=== PATIENT | female | born 1950 | race Caucasian/White ===

== ENCOUNTER 2023-06-26 11:18 | Emergency (ER) | payer MEDICARE, SELFPAY ==
[2023-06-26 11:26] VITALS: BP 163/75; PULSE 44; RESP 16; TEMP 36.4; O2SAT 95; BMI 32.2
--- NOTE | 2023-06-26 13:41 | ED_ITS ---
HPI - General Adult General Date Seen: 06/26/23 Chief complaint: Constipation Stated complaint: constipated Time Seen by Provider: 06/26/23 11:21 Source: patient and family Mode of arrival: ambulatory Limitations: no limitations and language barrier History of Present Illness HPI narrative: Patient is a very nice 9-year-old female presents here after her Medicare wellness exam she had earlier today she was seen by provider in [place], at the [facility], as she has a history of chronic constipation this been going on for many years, she told the provider that she had croup in a couple days, she is having no abdominal pain, fevers chills, nausea vomiting eating and drinking otherwise well. She has been trying some lemon is anti constipation medication from [place]. Her provider did x-ray that showed she was in her words full a poop, and sent her to the emergency room, she has no other symptoms, has a colonoscopy scheduled coming up here shortly, had a previous c olonoscopy 2 years ago where they did removed some polyps. None of them were cancerous, she is here with her daughter who speaks ankle anguish she does not speak any Slovak, and depression goes back and forth between [place] and the [place] . Did not take her antihypertensive medication losartan in the last couple days. My nurse noted that she is slightly bradycardiac. She is asymptomatic with this. Associated symptoms: denies other symptoms Related Data Allergies Allergy/AdvReac Type Severity Reaction Status Date / Time Penicillins Allergy Unknown Verified 06/26/23 11:32 Review of Systems Status of ROS: Reports: 10 or more systems reviewed and unremarkable except as noted in History and below PFSH PFSH Social History Smoking Status: Never smoker How often do you have a drink containing alcohol: never How often do you have six or more drinks on one occasion: Never AUDIT-C Alcohol total score: 0 Non-prescribed substance use: denies use Exam Narrative: Exam Narrative: On examination she is delightful she is in no apparent distress. Vital signs are listed. And reviewed the symptoms pupils are equal round reactive to light there is no scleral icterus redness, her TMs are normal her oropharynx is normal her chest is clear bilaterally with no wheezing crackles noted her heart sounds are normal no clicks murmurs or gallops her abdomen is soft and obese there is no guarding no organomegaly noted bowel sounds are normal. She is otherwise soft with no tenderness. With the mi senior director creative services present we did do a rectal exam which showed a little bit of stool in the rectal vault, there was no blood, my examining finger there is no significant hemorrhoids. Const: Vital Signs, click to edit/add: Vital Signs - 24 hr 06/26/23 11:26 Temperature 97.5 F L Pulse Rate [Pulse Oximeter] 44 L Respiratory Rate 16 Blood Pressure [Ri ght Upper Arm] 163/75 H Pulse Oximetry 95 Oxygen Delivery Me thod Room Air Documenting provider has reviewed patient's vital signs: yes Course Vital Signs Vital signs: Initial Vital Signs Temperature 97.5 F L 06/26/23 11:26 Temperature Source Temporal Artery Scan 06/26/23 11:26 Pulse Rate 44 L 06/26/23 11:26 Respiratory Rate 16 06/26/23 11:26 Blood Pressure 163/75 H 06/26/23 11:26 Blood Pressure Mean 104 06/26/23 11:26 Blood Pressure Position Sitting 06/26/23 11:26 Pulse Oximetry 95 06/26/23 11:26 Oxygen Delivery Method Room Air 06/26/23 11:26 Vital Signs Temperature 97.5 F L 06/26/23 11:26 Pulse Rate 44 L 06/26/23 11:26 Respiratory Rate 16 06/26/23 11:26 Blood Pressure 163/75 H 06/26/23 11:26 Pulse Oximetry 95 06/26/23 11:26 Oxygen Delivery Method Room Air 06/26/23 11:26 Temperature 97.5 F L 06/26/23 11:26 Pulse Rate 44 L 06/26/23 11:26 Respiratory Rate 16 06/26/23 11:26 Blood Pressure 163/75 H 06/26/23 11:26 Pulse Oximetry 95 06/26/23 11:26 Oxygen Delivery Method Room Air 06/26/23 11:26 Medical Decision Making MDM Narrative Medical decision making narrative: I discussed with her and her daughter, she has had a recent colonoscopy and has another 1 scheduled, she can use the MiraLax of the Go[facility] I did review the note from the previous physician that center here in there was no mention of sending her to the ER. So I do not know if this was wrongly stated by the patient. Nevertheless there is no emergent condition here, I did offer her enema which she declined. She can continue with the MiraLax and follow up if signs and symptoms of worsening which we discussed. Discharge Plan Discharge Clinical Impression: Chronic constipation, Bradycardia, Hypertension Patient Disposition: Home w/ Parent or Adult Condition: Stable Instructions: Constipation (ED), Chronic Hypertension (DC), Bradycardia (ED) Additional Instructions: Home rest lots of fluids, is the primary cause of constipation I have learned over the years is not enough fluids, couple this with lots of fiber, and the primary treatment is also MiraLax plus or minus the GoLYTELY that her doctor recommended. I do recommend that use visit with Dr. Willard at the public address announcer at [facility] he is very beneficial for this can a problem. Indications to come back to the emergency room where inability to eat, throwing up, or not passing gas. The low heart rate should be followed by your regular physician we do not do anything about this at this level unless you start to pass out or feel very very lightheaded. You should take your medications for your eye blood pressure as today's visit your blood pressure was slightly elevated. Follow-up with your regular physician Reposo en casa muchos l?quidos, es la causa principal del estre?imiento que he aprendido a lo thalia de los a?os no es suficiente l?quidos, combine esto con justin fibra, y el tratamiento primario tambi?n es MiraLax m?s o menos el GoLYTELY que le recomend? vicente m?dico. Recomiendo que visite al Dr. Willard en el gastroenter?logo de [facility], ya que es muy beneficioso para nadiya problema. Indicaciones para volver a la tita de emergencias en [place] de incapacidad para comer, v?mitos o no expulsar gases. La frecuencia card?bertrand baja debe ser seguida por vicente m?dico habitual, no hacemos nada al respecto a nadiya nivel a menos que comience a desmayarse o se sienta muy, muy mareado. Debe natalie sharon medicamentos para la presi?n arterial de los ojos, ya que en la visita de hoy vicente presi?n arterial estaba ligeramente elevada. Realice un seguimiento con vicente m?dico de cabecera Activity Level: Light activity Follow Up/Referrals: Carlos Willard MD [Staff Physician] - Shanda Snowden PA [Referring] - Provider,Not a Local [Primary Care Provider] - Stand Alone Forms: MyHealth Info Instructions
== END 2023-06-26 12:33 | disposition home or self-care (01) ==
PROVIDERS: Emergency Provider Family Medicine
DX: K59.00 Constipation, unspecified (principal); R00.1 Bradycardia, unspecified; I10 Essential (primary) hypertension
CPT/HCPCS: 93005; 99283; 99284; T1013